=== PATIENT | male | born 1945 | race Caucasian/White ===

== ENCOUNTER → 2018-03-03 09:27 | Outpatient (CLI) | payer MEDICARE, SELFPAY ==
--- NOTE | 2018-03-03 | DI.US.S_ITS ---
PROCEDURE: US CAROTID DOPPLER BI INDICATIONS: ARTERIAL DISEASE TECHNIQUE: Color and pulse Doppler interrogation was performed of both carotid systems, with image documentation and velocity measurements. COMPARISON: [facility], , CAROTID ARTERY DOPPLER BILAT, 04/14/2012, 10:32. FINDINGS: Stenosis calculations are based on SRU (Society of Radiologists in Ultrasound) criteria. Right side: Brachial blood pressure: 123/72 mm Hg. Common carotid artery peak systolic velocity: 86 cm/sec. Internal carotid artery peak systolic velocity: 100 cm/sec. Internal carotid artery end diastolic velocity: 28 cm/sec. External carotid artery peak systolic velocity: 143 cm/sec. ICA/CCA peak systolic ratio: 1.16. Willams scale imaging description: Multiple echogenic and calcified plaques Percent internal carotid artery stenosis: Less than 50%, unchanged. Vertebral artery: Flow direction is antegrade. Left side: Brachial blood pressure: 110/60 mm Hg. Common carotid artery peak systolic velocity: 103 cm/sec. Internal carotid artery peak systolic velocity: 115 cm/sec. Internal carotid artery end diastolic velocity: 28 cm/sec. External carotid artery peak systolic velocity: 235 cm/sec. ICA/CCA peak systolic ratio: 1.11 Willams scale imaging description: Several calcified and echogenic plaques Percent internal carotid artery stenosis: Less than 50%, unchanged. Vertebral artery: Flow direction is antegrade. IMPRESSION: Bilateral atheromatous plaques with less than 50% stenosis bilaterally, no change from last exam. 2. Elevated velocity in the left external carotid artery has increased. Dictated by: Harlan Pineda M.D. on 03/03/2018 at 11:43 Approved by: Harlan Pineda M.D. on 03/03/2018 at 11:46
--- NOTE | 2018-03-03 | DI.ECHO.S_ITS ---
[place] +---------+ [facility] +---------+ : : [address] : : : : [id number] : : : : Phone: [phone] Echocardiogram Report + + :Name: SYDNEY ZAVALA Study Date: 03/03/2018 Height: 69 in : :[facility] Weight: 169 lb : : Gender: Male BSA: 1.9 m2 : :: 1945 Age: 72 yrs BP: 110/60 mmHg: :Reason For Study: CAD : :Ordering Physician: Carlos : :Cynthia Performed By: Miriam Dowling : :Referring: Dr. Alan Carrillo : + + Interpretation Summary The left ventricle is normal in size. The ejection fraction is estimated to be 45-50%. Assessment of diastolic parameters suggests a pseudonormalization pattern, consistent with elevated filling pressures. The right ventricle is grossly normal size. The right ventricular systolic function is normal. There is mild mitral regurgitation. There is mild tricuspid regurgitation. The right ventricular systolic pressure is estimated at 27 mmHg assuming a right atrial pressure of 3 mm Hg. Procedure: A two-dimensional transthoracic echocardiogram with color flow and Doppler was performed. The study quality was technically adequate. There is no prior echocardiogram noted for this patient. The patient was in normal sinus rhythm during the exam. Left Ventricle: The left ventricle is normal in size. There is normal left ventricular wall thickness. There is no thrombus. The ejection fraction is estimated to be 45-50%. There is basal anteroseptal wall akinesis. There is basal inferoseptal wall hypokinesis. There is mid inferoseptal wall hypokinesis. Anterior and the inferior wall not seen well. Assessment of diastolic parameters suggests a pseudonormalization pattern, consistent with elevated filling pressures. Right Ventricle: The right ventricle is grossly normal size. The right ventricular systolic function is normal. Atria: The left atrium is mildly dilated. Right atrial size is normal. The interatrial septum is intact with no evidence for an atrial septal defect. Mitral Valve: The mitral valve leaflets appear borderline thickened, but open well. The mitral valve leaflets are slightly calcified. There is mild mitral regurgitation. Aortic Valve: The aortic valve is trileaflet. The aortic valve opens well. There is moderate aortic valve sclerosis. There is discrete nodular thickening of the non- coronary cusp. There is no aortic valve stenosis. No aortic regurgitation is present. Tricuspid Valve: The tricuspid valve is normal. There is mild tricuspid regurgitation. The right ventricular systolic pressure is estimated at 27 mmHg assuming a right atrial pressure of 3 mm Hg. Pulmonic Valve: The pulmonic valve is not well seen, but is grossly normal. There is mild pulmonic regurgitation. Great Vessels: The aortic root is normal size. The dimensions of the ascending aorta are normal. The IVC is of normal diameter and collapses greater than 50% with a sniff. This suggests a low right atrial pressure of 3 mm Hg. Pericardium/ Pleura There is no pericardial effusion. There is no pleural effusion. MMode/2D Measurements & Calculations LVIDd: 4.6 cm Ao root diam: 3.2 cm LVIDs: 4.3 cm Aortic Jxn: 2.5 cm FS: 6.5 % asc Aorta Diam: 3.1 cm EPSS: 0.53 cm Ao Arch Diam (Prox Trans): 2.8 cm IVSd: 0.69 cm LVPWd: 0.43 cm LV jacobo. diameter/BSA (cm/m^2): 2.4 LV sys. diameter/BSA (cm/m^2): 2.2 LA dimension: 4.2 cm RA long axis: 4.6 cm LA A2 area: 22.5 cm2 RA area: 14.0 cm2 LA A4 area: 20.9 cm2 RA vol: 36.6 ml LA length (vol): 5.4 cm RA : 19.1 ml/m2 LA vol: 74.3 ml IVC diam: 2.0 cm LA vol index: 38.6 ml/m2 RVDd major: 4.9 cm RVD1 (basal): 3.7 cm RVD2 (mid): 3.5 cm Doppler Measurements & Calculations Ao V2 max: 135.3 cm/sec MV E max clement: 98.3 cm/sec Ao V2 mean: 93.8 cm/sec MV A max clement: 74.2 cm/sec Ao max P.3 mmHg MV E/A: 1.3 Ao mean P.9 mmHg Med Peak E' Clement: 6.1 cm/sec Ao V2 VTI: 33.3 cm E/E' med: 16.1 Lat Peak E' Clement: 10.6 cm/sec E/E' lat: 9.2 E/e' average: 12.7 MV dec time: 0.19 sec MV P1/2t: 58.8 msec MR ERO: 0.08 cm2 TR max clement: 244.5 cm/sec MV P1/2t max clement: 98.7 cm/sec TR max P.9 mmHg MVA(P1/2t): 3.7 cm2 PA V2 max: 108.5 cm/sec PA V2 mean: 80.1 cm/sec PA mean P.8 mmHg PA Accel Time: 0.17 sec MR flow rate: 41.4 cm3/sec MR PISA radius: 0.42 cm Reading Physician:BIBIANA
== END ==
PROVIDERS: PCP Internal Medicine; Visit Provider Internal Medicine Cardiovascular Disease
DX: I25.10 Atherosclerotic heart disease of native coronary artery without angina pectoris (principal); I08.1 Rheumatic disorders of both mitral and tricuspid valves; I65.23 Occlusion and stenosis of bilateral carotid arteries
CPT/HCPCS: 93306; 93880

== ENCOUNTER → 2018-04-23 08:26 | Outpatient (CLI) | payer MEDICARE, SELFPAY ==
[2018-04-23 10:22] LABS: Alanine Aminotransferase 30 IU/L (21-72); Albumin 4.4 g/dL (3.5-5.0); Albumin Globulin Ratio 1.4 (1.0-2.8); Alkaline Phosphatase 108 U/L (38-126); Aspartate Aminotransferase 23 IU/L (17-59); BUN Creatinine Ratio 16.7 (6-22); Bilirubin Total 0.9 mg/dL (0.2-1.3); Blood Urea Nitrogen 15 mg/dL (9-20); Calcium 9.3 mg/dL (8.4-10.2); Carbon Dioxide 28 mmol/L (22-32); Chloride 102 mmol/L (98-107); Cholesterol 158 mg/dL (140-199); Estimated Glomerular Filt Rate > 60.0 mL/min (>60); Globulin 3.2 g/dL (1.7-4.1); Glucose 110 mg/dL (80-110); HDL Cholesterol 48 mg/dL (40-60); HEMOLYSIS < 15 (0-50); LDL Cholesterol Calculated 92 mg/dL (<100); Potassium 4.3 mmol/L (3.4-5.1); Sodium 141 mmol/L (137-145); Total Protein 7.6 g/dL (6.3-8.2); Triglycerides 90 mg/dL (35-150)
== END ==
PROVIDERS: Visit Provider Internal Medicine Cardiovascular Disease
DX: I10 Essential (primary) hypertension (principal); E78.5 Hyperlipidemia, unspecified
CPT/HCPCS: 36415; 80053; 80061